=== PATIENT | female | born 1995 | race Caucasian/White ===

== ENCOUNTER 2023-05-03 15:38 | Emergency (ER) | payer OTHER, SELFPAY ==
--- NOTE | ~2023-05-03 | CT_ITS ---
EXAMINATION: CT brain wo con DATE: 05/03/2023 16:23 INDICATION: Fall. Head injury, forehead swelling. Neck pain. TECHNIQUE: Computed tomography (CT) of the head was performed without intravenous contrast. The mA wa s adjusted according to patient size. Iterative reconstruction technique was employed. Exam dose: 52 9.67 mGy-cm total exam DLP. COMPARISON: None FINDINGS: There is frontal cephalohematoma without underlying skull fracture. No coup or contrecoup intracrania l injury is detected. No intracranial mass lesion or hemorrhage or cerebrovascular accident. No midline shift or mass effec t. Normal ventricular size. Normal carrera-white matter differentiation. No subdural or epidural hematom a. No fracture or bone destruction of the cranial vault. Normal development and aeration of the mastoid air cells and included paranasal sinuses. IMPRESSION: Negative Reviewed, dictated and finalized at [facility] Reviewed, dictated and finalized at [facility]. IMPRESSION: Negative
--- NOTE | ~2023-05-03 | CT_ITS ---
EXAMINATION: CT cervical spine wo con DATE: 05/03/2023 16:23 INDICATION: Fall. Neck pain. Frontal cephalohematoma. TECHNIQUE: Computed tomography (CT) of the cervical spine was performed without intravenous contrast. Automated exposure control and iterative reconstruction technique were employed. Exam dose: 238.54 mGy-cm total exam DLP. COMPARISON: None FINDINGS: There is straightening of the cervical spine which may be due to muscle spasm or positionin g. C1 and C2 are normally aligned and the odontoid process is intact. No fracture or dislocation, locked facet or prevertebral soft tissue swelling. Cervical interspaces are well preserved.. IMPRESSION: Straightening of cervical spine; otherwise negative Reviewed, dictated and finalized at [facility]. Reviewed, dictated and finalized at [facility].
[2023-05-03 15:36] VITALS: BP 123/71; PULSE 94; RESP 18; TEMP 36.8; O2SAT 100
--- NOTE | 2023-05-03 16:01 | ED.FALL ---
HPI - Fall General Chief Complaint: Fall Stated Complaint: fall Time Seen by Provider: 05/03/23 15:59 History of Present Illness HPI Narrative: Patient is a 28-year-old female here from present after a fall. She last remembers going to shower and then she was found on the floor and herself. They believe she may have fallen out of her cell and when someone walked by her rheumatoid. She may have had some seizure like activity. Patient does not remember the incident. She is currently complaining of a headache. No vision changes, no numbness or weakness in arms or legs. No prior history of seizure, no alcohol abuse. She is additionally complaining of multiple symptoms that have been present for several days including Feeling jittery, restless legs, nausea, diarrhea, vague abdominal pain. 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 She is not taking Suboxone, Suboxone is not prescribed or provided at the [facility]. Related Data Allergies Allergy/AdvReac Type Severity Reaction Status Date / Time No Known Allergies Allergy Verified 09/09/11 12:42 Review of Systems Review of Systems: CONSTITUTIONAL: Denies fever, chills. Has sweating. EYES: Denies visual changes, redness, or discharge. ENT: Denies rhinorrhea, congestion, sore throat, or otalgia. CARDIOVASCULAR: Denies chest pain, palpitations, or edema. RESPIRATORY: Denies cough or dyspnea. GASTROINTESTINAL: abdominal pain, nausea, vomiting, and diarrhea. GENITOURINARY: Denies dysuria or hematuria. SKIN: Denies rash or itching. MUSCULOSKELETAL: Denies back pain, joint pain, or myalgia. NEUROLOGIC: headache, no numbness, or weakness. PSYCHIATRIC: Anxious Exam Narrative: GENERAL: Well-appearing, well-nourished, and in no acute distress. Restless HEAD: Normocephalic, hematoma present mid forehead, overlying abrasion. No underlying bone deformities appreciated EYES: PERRLA and EOMI. ENT: Nares clear. Mucous membranes moist. NECK: Supple. C-collar in place, no c-spine tenderness. CHEST: Clear to auscultation. No respiratory distress. No chest wall tenderness. HEART: Regular rate and rhythm. Normal peripheral pulses. ABDOMEN: Soft, diffuse lower abdominal tenderness, no rebound or guarding. EXTREMITIES: Normal range of motion. No edema. No extremity trauma. SKIN: Warm, dry, no rash. NEURO: No focal deficits. Alert and oriented x3. PSYCH: Anxious appearing. Course Course Emergency Course: Chart review performed. Patient here from [facility] after falling out of her bunk. No prior notes in our system. Triage vitals within normal limits. Patient seen evaluated. Isolated head injury appreciated. No additional traumatic injuries noted on exam. She does have multiple symptoms including diarrhea, vague abdominal pain, restless legs which are all likely attributed to her active opiate withdrawal. He did discuss that although I a.m. able to provide Suboxone there is no one that can continue Suboxone through the [facility] so it cannot be provided to her at this time. Will give dose of clonidine and Tylenol given headache. Will additionally update Tdap. CT head and C-spine ordered. I will order basic labs given she possibly had a seizure like activity, no history of seizures, I do not have concern for alcohol withdrawal at this time. Suspect she will likely be able to return to [facility], his sleep with her mattress on the floor and be observed there. Lab work and imaging reviewed. CBC within normal limits, electrolytes within normal limits. GFR normal. Mild elevation in AST and ALT within normal bilirubin. No UTI. UA shows no UTI. CTs negative. Will reevalute and DC to [facility]. The results of pertinent diagnostic studies and exam findings were discussed. The patient?s provisional diagnosis and plan of care were discussed with the patient and present family. The patient and/or present family expressed under
[2023-05-03] MEDS: cloNIDine HCL 0.1 MG TABLET PO (16:25)
[2023-05-03 16:47] LABS: Basophils Percent Auto 0.1 % (0.2-1.2); Hematocrit 41.1 % (37.0-47.0); Hemoglobin 13.5 g/dL (12.0-15.0); Immature Granulocyte Absolute 0.04 K/mm3 (0.00-0.031); Immature Granulocyte Percent A 0.5 % (0-0.5); Lymphocytes Absolute Auto 1.03 K/mm3 (0.9-3.2); Lymphocytes Percent Auto 12.7 % (18.3-44.2); Mean Corpuscular HGB Conc 32.8 g/dl (32-36); Mean Corpuscular Hemoglobin 29.3 pg (26-34); Mean Corpuscular Volume 89.3 fl (80-100); Mean Platelet Volume 10.2 fl (7.4-10.4); Monocytes Absolute Auto 0.3 K/mm3 (0.1-0.6); Monocytes Percent Auto 3.7 % (2.6-8.5); Neutrophils Absolute Auto 6.8 K/mm3 (1.3-6.7); Platelet Count Result 273 k/mm3 (150-375); Red Cell Distribution Width 13.5 % (11.5-14.5); White Blood Count 8.1 K/mm3 (4.5-10.0)
[2023-05-03] MEDS: ACETAMINOPHEN 500 MG TABLET 1000 MG PO (16:55)
[2023-05-03] MEDS: TETANUS,DIPHTHERIA,AC PERTUSSIS ADULT (0.5 ML) BOOSTRIX IM (16:58)
[2023-05-03 16:59] LABS: Alanine Aminotransferase 55 U/L (6-35); Alkaline Phosphatase 81 U/L (38-126); Anion Gap 9 mmol/L (8-16); Aspartate Amino Transferase 40 U/L (14-36); Bilirubin,Total 0.7 mg/dL (0.2-1.3); Blood Urea Nitrogen 9 mg/dL (7-17); Carbon Dioxide 22 mmol/L (22-30); Chloride 104 mmol/L (98-107); Estimated Glomerular Filt Rate > 60; Glucose 115 mg/dL (65-110); Lipase 50 U/L (23-300); Magnesium 1.8 mg/dL (1.6-2.3); Potassium 3.7 mmol/L (3.4-5.0); Sodium 135 mmol/L (137-145)
[2023-05-03 17:03] LABS: Appearance Urine Clear (Clear); Bacteria Urine None Seen /hpf; Bilirubin Urine Negative (Negative); Blood Urine Negative (Negative); Color Urine Yellow (Yellow); Glucose Urine UA Negative (Negative); Ketones Urine 1+ mg/dL (Negative); Leukocyte Esterase Ur Negative LEU/UL (Negative); Nitrate Urine Negative (Negative); Non Pathogenic Casts 0-2; Protein Urine 2+ mg/dL (Negative); RBC Urine 0-2 /hpf (0-2); Specific Grav Ur 1.012 (1.001-1.035); Squamous Epithelial Cell Urine None seen /hpf (Few); WBC Urine 0-5 /hpf; pH Urine 6.5 (5.0-9.0)
[2023-05-03 17:12] LABS: Add Urine Microscopic? YES
== END 2023-05-03 18:00 ==
PROVIDERS: Emergency Provider Student in an Organized Health Care Education/Training Program
DX: R56.9 Unspecified convulsions (principal); S09.90XA Unspecified injury of head, initial encounter; Z23 Encounter for immunization; W19.XXXA Unspecified fall, initial encounter
CPT/HCPCS: 36415; 70450; 72125; 80053; 81001; 81025; 83690; 83735; 85025; 90471; 90715; 99284; A9270